=== PATIENT | male | born 1950 | race Caucasian/White ===

== ENCOUNTER 2017-10-26 17:57 | Emergency (ER) | payer OTHER ==
[2017-10-26] MEDS ORDERED: Fluorescein Sod TOPICAL 0.6* 0.6 MG TEST OPHTHALMIC ONE (18:12)
[2017-10-26] MEDS ORDERED: Tetracaine 0.5% OPTH.SOL 4 ML* 1 DROP BTL RIGHT EYE ONE (18:12)
[2017-10-26] MEDS ORDERED: Polymyx/Trimethoprim OPTH* 10 ML BTL RIGHT EYE ONE (18:37)
--- NOTE | 2017-10-26 18:37 | ED ---
Throat Pain/Nasal Congestion - HPI Summary HPI Summary: 66M presents with right eye pain for the past day. He states he believes he got a foreign body in the eye. States that his eye has been burning. He also states it feels like it is scratch. He denies any drainage from the eye. Denies any change in vision. Denies any blurry vision. He denies any photophobia. He states the pain has gradually gotten worse. He believes his tetanus up-to-date. He does not believe that there is any metal in his eye. His tetanus is up to date. He was working with [employer]. - History of Current Complaint Chief Complaint: EDEyeProblem Time Seen by Provider: 10/26/17 18:12 - Allergies/Home Medications Allergies/Adverse Reactions: Allergies Allergy/AdvReac Type Severity Reaction Status Date / Time No Known Allergies Allergy Verified 10/26/17 17:59 PMH/Surg Hx/FS Hx/Imm Hx Endocrine/Hematology History: Denies: Hx Anticoagulant Therapy Cardiovascular History: Reports: Hx Hypertension Infectious Disease History: Yes Infectious Disease History: Denies: Traveled Outside the [place] in Last 30 Days - Family History Known Family History: Negative: Diabetes - Social History Alcohol Use: Occasionally Smoking Status (MU): Unknown if Ever Smoked Review of Systems Negative: Fever Positive: Other - right eye pain Negative: Chest Pain Negative: Shortness Of Breath All Other Systems Reviewed And Are Negative: Yes Physical Exam Triage Information Reviewed: Yes Vital Signs On Initial Exam: Initial Vitals Temp Pulse Resp BP Pulse Ox 97.5 F 53 16 161/70 97 10/26/17 17:59 10/26/17 17:59 10/26/17 17:59 10/26/17 17:59 10/26/17 17:59 Vital Signs Reviewed: Yes Appearance: Positive: Well-Appearing Skin: Positive: Warm, Dry Head/Face: Positive: Normal Head/Face Inspection Eyes: Positive: Normal, EOMI, NENITA, Conjunctiva Inflammed - minimially, Other: - No foreign body, half centimeter uptake on fluorescein exam at 6 o'clock position of right eye ENT: Positive: Normal ENT inspection, Pharynx normal, TMs normal Respiratory/Lung Sounds: Positive: Clear to Auscultation, Breath Sounds Present Cardiovascular: Positive: Normal, RRR Musculoskeletal: Positive: Normal Neurological: Positive: Normal Psychiatric: Positive: Normal Procedures - Eye Procedure Alcaine Drops Administered: Yes - corneal abrasion at 6 position Diagnostics - Vital Signs Vital Signs Temp Pulse Resp BP Pulse Ox 10/26/17 17:59 97.5 F 53 16 161/70 97 - Laboratory Lab Statement: Any lab studies that have been ordered have been reviewed, and results considered in the medical decision making process. EENT Course/Dx - Course Course Of Treatment: 66M presents with right eye pain for the past day. He states he believes he got a foreign body in the eye. States that his eye has been burning. He also states it feels like it is scratch. He denies any drainage from the eye. Denies any change in vision. Denies any blurry vision. He denies any photophobia. He states the pain has gradually gotten worse. He believes his tetanus up-to-date. He does not believe that there is any metal in his eye. His tetanus is up to date. He was working with [employer]. on exam no foreign body seen conjunctiva minimally injected. On fluorescein exam 1/2 centimeter uptake at 6 o'clock position. We'll treat with Polytrim. Patient understands agrees with plan. - Differential Diagnoses Differential Diagnoses: Conjunctivitis, Corneal Abrasion, Foreign Body - Diagnoses Provider Diagnoses: Corneal abrasion Discharge - Sign-Out/Discharge Documenting (check all that apply): Discharge/Admit/Transfer - Discharge Plan Condition: Good Disposition: HOME Patient Education Materials: Corneal Abrasion (ED) Referrals: Mickey BELLO,Cortez Lopez [Primary Care Provider] - Thompson Moncada MD [Medical Doctor] - Additional Instructions: Place 1 drop in eye 4 times a day for 5 days Use artificial tears or saline to rinse eye for symptomatic relief Take Tylenol or ibuprofen for pain Follow up with ophthalmology if no improvement in 3 days Return to ED if develop any new or worsening symptoms - Billing Disposition and Condition Condition: GOOD Disposition: HOME
[2017-10-26 19:04] VITALS: BP 152/78
== END 2017-10-26 19:01 | disposition home or self-care (01) ==
LOC: ED 17:57
DX: S05.01XA Injury of conjunctiva and corneal abrasion without foreign body, right eye, initial encounter (principal); X58.XXXA Exposure to other specified factors, initial encounter; Y92.9 Unspecified place or not applicable
CPT/HCPCS: 99282; A9270-GY